=== PATIENT | male | born 1965 | race Caucasian/White ===

== ENCOUNTER → 2025-06-09 08:06 | Outpatient (BNVA) | payer OTHER, SELFPAY | PROVIDERS: Family Provider Family Medicine; PCP Family Medicine; Visit Provider Orthopaedic Surgery | DX: M18.12 Unilateral primary osteoarthritis of first carpometacarpal joint, left hand (principal) | CPT/HCPCS: 73130 ==

== ENCOUNTER 2025-06-09 10:53 | Outpatient (CLI) | payer OTHER, SELFPAY | END 2025-06-09 10:54 | disposition home or self-care (01) | LOC: SPT 10:54 | PROVIDERS: Family Provider Family Medicine; PCP Family Medicine; Visit Provider Orthopaedic Surgery | DX: Z46.89 Encounter for fitting and adjustment of other specified devices (principal); M18.12 Unilateral primary osteoarthritis of first carpometacarpal joint, left hand | CPT/HCPCS: 20600; 99204; J3301; J3490; J9999; L3924 ==

== ENCOUNTER → 2025-06-24 10:07 | Outpatient (BNVA) | payer OTHER, SELFPAY | PROVIDERS: Family Provider Family Medicine; PCP Family Medicine; Visit Provider Dermatology | DX: L82.1 Other seborrheic keratosis (principal); L81.4 Other melanin hyperpigmentation; D48.5 Neoplasm of uncertain behavior of skin; L57.0 Actinic keratosis | CPT/HCPCS: 11102; 17000; 99203 ==